=== PATIENT | male | born 1975 | race Caucasian/White ===

== ENCOUNTER 2019-07-26 11:37 | Emergency (ER) | payer SELFPAY ==
[~2019-07-26] VITALS: Ht 175.3 cm; Wt 90.7 kg
[2019-07-26 11:43] VITALS: BP_SYST 144
--- NOTE | 2019-07-26 11:43 | NUR ---
Patient to ER bed HW1 to gown for evaluation. Side rails up. Assumed care.
--- NOTE | 2019-07-26 11:48 | NUR ---
Patient arrived via law enforcement for okay to book. Patient AAOx4, ambulatory with steady gait. Patient states c/c of left sided generalized pain, "hurts everywhere." Rated 10/10 pain. Per patient, onset of pain was 1.5 years (01/2017) ago following an injury at work. Patient takes Vicodin for pain management. Patient states dizziness, sleepiness, and nausea. Will continue to follow up and monitor.
--- NOTE | 2019-07-26 12:05 | NUR ---
MADHAV Cota at bedside examining patient.
--- NOTE | 2019-07-26 12:08 | NUR ---
Per patient when speaking to the doctor, patient has been sober for 15 years. Patient medicates with hemp oil and marajuana. Patient requesting vicodin for pain relief.
[2019-07-26] MEDS ORDERED: KETOROLAC TROMETHAMINE 30 MG VIAL IM ONE (12:15)
--- NOTE | 2019-07-26 12:20 | NUR ---
Patient given written and verbal discharge instructions and verbalizes understanding. ER MD discussed with patient the results and treatment provided. Patient in stable condition. ID arm band removed. Rx of Ibuprofen given. Patient educated on pain management and to follow up with PMD. Pain Scale 10/10, sent with prescription, MD aware. Opportunity for questions provided and answered. Medication side effect fact sheet provided.
[2019-07-26 12:23] VITALS: BP_SYST 144
== END 2019-07-26 12:23 ==
LOC: SED 11:37
DX: I10 Essential (primary) hypertension (principal); G89.29 Other chronic pain
CPT/HCPCS: 96372; 99283; J1885